=== PATIENT | female | born 1945 | race Two or more races ===

== ENCOUNTER → 2017-01-14 | Outpatient (REF) | payer MEDICARE ==
[~2017-01-14] MED LIST: ACET-654 PO; ASPI81TA90 PO; CALCI50TA PO; CAPT31TA PO; CAPT62TA PO; CARV3.12 PO; CARV6.25 PO; DOCU100C PO; FERR32TA PO; GLIP5TAB2 PO; MILKSUS5 PO; MIRA255PW PO; MV-OCAP PO; NITR0.4D SL; PERCOCET PO; SENN8.6T76 PO; SIMV40TA2 PO; WARF6TAB14 PO; WARF7.5T17 PO; ZOCO20TA PO
[2017-01-14 19:06] LABS: CALCIUM OXALATE CRYSTALS LARGE
== END ==
LOC: M SMT 16:45
PROVIDERS: ATTEND Urology
DX: R31.0 Gross hematuria (principal)
CPT/HCPCS: 81001; 87086; 88108; G0463

== ENCOUNTER → 2017-02-01 | Outpatient (CLI) | payer MEDICARE ==
[~2017-02-01] MED LIST changes: +ISOVUE-370 76% 100ML VIAL (Q9967) As Ordered ONE
--- NOTE | 2017-02-02 11:18 | REP ---
CT ABDOMEN: HISTORY: Gross hematuria. COMPARISON: None. FINDINGS: The lung bases are essentially clear and unchanged from a prior CT of the chest 08/17/2011. Limited noncontrast enhanced evaluation of the liver, spleen, pancreas and adrenal glands show no gross abnormalities. Arising from the superior pole of the left kidney and projecting anteriorly, there is a round 1.6 cm size low density mass having slightly higher than water Hounsfield unit readings. Also seen in the left kidney interpolar region projecting medially, there is a 1.9 cm sized low density lesion having water Hounsfield unit readings in a single mural calcification. There is a single right nephrolith. There is no hydronephrosis or hydroureter. 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 I see no definite ureteroliths. A small ureterolith could be obscured by the aforementioned artifact. This is even after [employer] metallic artifact reducing software in play. Limited evaluation of the abdominal aorta and paraaortic regions show no gross abnormalities. Age-related calcified atherosclerotic changes noted. Limited evaluation of the bowel loops and their mesentery show no gross abnormalities. There is no free fluid or free air in the abdomen or pelvis. There is a large amount of adipose tissue seen in each inguinal ring. This needs to be correlated clinically to rule out the possibility of a fat containing inguinal hernia, which cannot be diagnosed by this examination. Bone window technique throughout the examination shows the bones to be demineralized and chronic osseous changes are noted with a right hip prosthesis. IMPRESSION: 1. Hyperdense left renal cyst suggesting Bosniak class 2. Correlate clinically. Obtain renal ultrasound for confirmation. 2. Additional Bosniak class 2 left renal cyst interpolar region as described above with a single mural calcification. Also consider ultrasound. 3. Small incidental right nephrolith. 4. Other findings and limitations as described above, which need clinical correlation. Signed by Charbel Gonsalez DO 02/02/2017 11:36 A
== END ==
LOC: M RAD 16:41
PROVIDERS: ATTEND Urology
DX: R31.9 Hematuria, unspecified (principal)

== ENCOUNTER → 2022-07-24 | Outpatient (CLI) | payer MEDICARE ==
[~2022-07-24] MED LIST changes: +CAPT1TAB19 PO; -CAPT31TA PO; -CAPT62TA PO; -ISOVUE-370 76% 100ML VIAL (Q9967) As Ordered ONE; -MIRA255PW PO; +OXYC1TAB23 PO; -PERCOCET PO; +POLY1POW4 PO
[2022-07-24 15:22] LABS: BASO % 0.4 % (0.0-1.0); EOS # 0.1 10^3/uL (0.0-0.5); EOS % 1.8 % (0.0-3.0); HEMOGLOBIN 14.9 g/dl (12.0-15.5); LYMPH # 2.3 10^3/uL (1.5-5.0); LYMPH % 30.8 % (24.0-44.0); MEAN CORPUSCULAR HEMOGLOBIN 30.5 pg (27.0-33.0); MEAN CORPUSCULAR HGB CONC 32.4 g/dl (32.0-36.5); MEAN CORPUSCULAR VOLUME 94.3 fl (80.0-96.0); MONO # 0.9 10^3/uL (0.0-0.8); MONO % 11.7 % (2.0-8.0); NEUTROPHILS % 54.9 % (36.0-66.0); PLATELET COUNT, AUTOMATED 248 10^3/uL (150-450); RED BLOOD COUNT 4.88 10^6/uL (4.00-5.40); WHITE BLOOD COUNT 7.4 10^3/uL (4.0-10.0)
[2022-07-24 15:58] LABS: CALCIUM LEVEL 9.4 MG/DL (8.8-10.2); CREATININE FOR GFR 1.37 MG/DL (0.55-1.30); GLOMERULAR FILTRATION RATE 39.8 (>39); POTASSIUM SERUM 4.3 MEQ/L (3.5-5.1)
== END ==
LOC: M RAD 14:11
PROVIDERS: ATTEND Physician Assistant
DX: I25.5 Ischemic cardiomyopathy (principal); S22.000A Wedge compression fracture of unspecified thoracic vertebra, initial encounter for closed fracture; Z96.611 Presence of right artificial shoulder joint; Z95.0 Presence of cardiac pacemaker; Y92.9 Unspecified place or not applicable; Y93.9 Activity, unspecified

== ENCOUNTER 2023-03-16 11:42 | Inpatient (IN) | payer MEDICARE ==
[2023-03-16] VITALS (19 sets, daily range): BP systolic 84–120; BP diastolic 55–83; TEMP 98.2; O2SAT 93–95
[~2023-03-16] VITALS: Ht 162.6 cm; Wt 71.8 kg
[2023-03-16] MEDS ORDERED: NS 1,000 ML IV ONE (12:20)
[2023-03-16] MEDS ORDERED: LIDOCAINE 2% 5ML JELLY UROJET TOP ONE (12:20)
[2023-03-16 12:29] LABS: HEMATOCRIT 46.6 % (36.0-47.0); HEMOGLOBIN 15.7 g/dl (12.0-15.5); MEAN CORPUSCULAR HEMOGLOBIN 31.3 pg (27.0-33.0); MEAN CORPUSCULAR HGB CONC 33.7 g/dl (32.0-36.5); MEAN CORPUSCULAR VOLUME 92.8 fl (80.0-96.0); PLATELET COUNT, AUTOMATED 142 10^3/uL (150-450); RED BLOOD COUNT 5.02 10^6/uL (4.00-5.40); WHITE BLOOD COUNT 28.9 10^3/uL (4.0-10.0)
[2023-03-16 12:50] LABS: ATYPICAL LYMPH 1 % (0-5); LYMPHOCYTES 2 % (16-44); METAMYELOCYTES 2 % (0-0); MONOCYTES 4 % (0-5); NEUTROPHILS 71 % (28-66)
[2023-03-16 12:51] LABS: PLATELET ESTIMATE DECREASED (NORMAL); TOXIC VACUOLATION 1+
[2023-03-16 12:56] LABS: ETHYL ALCOHOL (ETHANOL) < 0.003 % (0.000-0.010)
[2023-03-16 12:57] LABS: ACETAMINOPHEN LEVEL < 2.0 UG/ML (10.0-20.0); CPK CREATINE PHOSPHOKINASE 142 U/L (34-145); SALICYLATE LEVEL < 3.0 MG/DL (<30)
[2023-03-16 12:58] LABS: ALBUMIN 3.2 G/DL (3.2-5.2); ALKALINE PHOSPHATASE 80 U/L (46-116); ALT/SGPT 24 U/L (7.0-40); AST/SGOT 53 U/L (<34); BILIRUBIN,DIRECT 0.7 MG/DL (<0.4); BILIRUBIN,TOTAL 1.3 MG/DL (0.3-1.2); BLOOD UREA NITROGEN 50 MG/DL (9-23); CALCIUM LEVEL 9.5 MG/DL (8.3-10.6); CARBON DIOXIDE LEVEL 15 MMOL/L (20-31); CHLORIDE LEVEL 105 MMOL/L (98-107); CK-MB VALUE MASS 1.6 NG/ML (<3.6); CREATININE FOR GFR 4.09 MG/DL (0.55-1.30); GLOMERULAR FILTRATION RATE 11.2 (>39); GLUCOSE, FASTING 161 MG/DL (74-106); MB/CK RELATIVE INDEX 1.12 (< OR =4); POTASSIUM SERUM 4.9 MMOL/L (3.5-5.1); SODIUM LEVEL 137 MMOL/L (136-145)
[2023-03-16 12:59] LABS: THYROID STIMULATING HORMONE 2.907 uIU/ML (0.55-4.78)
[2023-03-16 13:00] LABS: RSV AMPLIFICATION NEGATIVE (NEGATIVE)
[2023-03-16 13:05] LABS: AMPHETAMINES LEVEL URINE NEGATIVE (NEGATIVE); BARBITURATES URINE NEGATIVE (NEGATIVE); BENZODIAZEPINES URINE NEGATIVE (NEGATIVE); CANNABINOIDS URINE NEGATIVE (NEGATIVE); COCAINE METABOLITE URINE NEGATIVE (NEGATIVE); METHADONE URINE NEGATIVE (NEGATIVE); OPIATES URINE NEGATIVE (NEGATIVE); PHENCYCLIDINE URINE NEGATIVE (NEGATIVE)
[2023-03-16] MEDS ORDERED: LevoFLOXacin IV 750 MG in IV 1 EA IV ONE (13:10)
[2023-03-16] MEDS ORDERED: NS 1,100 ML in IV 1 EA IV ONE (13:15)
[2023-03-16 13:16] LABS: OSMOLALITY SERUM 304 MOSM/KG (280-301)
[2023-03-16 13:56] LABS: CK-MB VALUE MASS 1.4 NG/ML (<3.6)
[2023-03-16 14:00] LABS: MB/CK RELATIVE INDEX 0.55 (< OR =4)
[2023-03-16] MEDS ORDERED: MULT400T10 PO (15:13)
[2023-03-16] MEDS ORDERED: CARV6.25 PO (15:13)
[2023-03-16] MEDS ORDERED: RA A81CH3 PO (15:13)
[2023-03-16] MEDS ORDERED: CAPT125TA PO (15:13)
[2023-03-16] MEDS ORDERED: FENO160T10 PO (15:13)
[2023-03-16] MEDS ORDERED: ACET1TAB55 PO (15:13)
[2023-03-16] MEDS ORDERED: OXYB5TAB10 PO (15:13)
[2023-03-16] MEDS ORDERED: ATOR1TAB21 PO (15:13)
[2023-03-16] MEDS ORDERED: HOME MED LIST COMPLETE! XX SCH (15:15)
[2023-03-16] MEDS ORDERED: ACETAMINOPHEN 1000MG 100ML IV BAG As Ordered ONE (15:19)
[2023-03-16] MEDS ORDERED: PHENYLephrine 500MCG 5ML (100MCG/ML) SYRINGE As Ordered ONE ×2 (15:19→15:49)
[2023-03-16] MEDS ORDERED: ONDANSETRON 4MG 2ML VIAL As Ordered ONE (15:19)
[2023-03-16] MEDS ORDERED: propofoL 200 MG/20 ML VIAL As Ordered ONE (15:19)
[2023-03-16] MEDS ORDERED: fentaNYL 100 MCG/2 ML INJECTION As Ordered ONE (15:19)
[2023-03-16] MEDS ORDERED: LIDOCAINE 2% 100MG/5ML SDV (FOR ANES.) As Ordered ONE (15:19)
[2023-03-16] MEDS ORDERED: ISOVUE-300 61% 50ML VIAL XX ONE (15:44)
[2023-03-16] MEDS ORDERED: PHENYLEPHRINE HCL INJ 10 MG in D5W 100 ML IV SCH (15:50)
[2023-03-16] MEDS ORDERED: ALBUTEROL SULFATE 2.5MG/0.5ML INH NEB SOLN NEB PRN (16:20)
[2023-03-16] MEDS ORDERED: NOREPINEPHRINE 4MG IN D5 250ML 4 MG in IV 1 EA IV SCH ×2 (16:20)
[2023-03-16] MEDS ORDERED: NS 1,000 ML IV SCH (16:25)
[2023-03-16] MEDS ORDERED: DEXTROSE 50% 50ML SYRINGE IV PRN (16:25)
[2023-03-16] MEDS ORDERED: GLUCAGON INJ 1MG VIAL SC PRN (16:25)
[2023-03-16] MEDS ORDERED: GLUCOSE 4GM CHEW TABLET PO PRN (16:25)
[2023-03-16] MEDS: INSULIN LISPRO (NovoLOG) PER UNIT SC SCH (17:08)
[2023-03-16 18:23] LABS: ABG BASE EXCESS -6.8 (-2.0-2.0); ABG HCO3 16.1 MMOL/L (22.0-26.0); ABG PARTIAL PRESSURE CO2 26.5 mmHg (35.0-45.0); ABG PARTIAL PRESSURE O2 68.6 mmHg (75.0-100.0); ABG STANDARD HCO3 18.9 MMOL/L. (22.0-26.0); ABG TOTAL CO2 16.9 MMOL/L (23.0-31.0); ABG pH (ARTERIAL) 7.402 UNITS (7.350-7.450)
[2023-03-16] MEDS: AZTREONAM 1 GM in D5W MINI-BAG PLUS 50 ML IV SCH (18:35)
[2023-03-16 20:55] LABS: HEMATOCRIT 46.7 % (36.0-47.0); HEMOGLOBIN 14.9 g/dl (12.0-15.5); MEAN CORPUSCULAR HEMOGLOBIN 30.8 pg (27.0-33.0); MEAN CORPUSCULAR HGB CONC 31.9 g/dl (32.0-36.5); MEAN CORPUSCULAR VOLUME 96.5 fl (80.0-96.0); PLATELET COUNT, AUTOMATED 113 10^3/uL (150-450); RED BLOOD COUNT 4.84 10^6/uL (4.00-5.40); WHITE BLOOD COUNT 20.1 10^3/uL (4.0-10.0)
[2023-03-16 21:16] LABS: BILIRUBIN,TOTAL 0.9 MG/DL (0.3-1.2); CALCIUM LEVEL 8.2 MG/DL (8.3-10.6); CREATININE FOR GFR 3.39 MG/DL (0.55-1.30); MAGNESIUM LEVEL 1.7 MG/DL (1.8-2.4); POTASSIUM SERUM 4.9 MMOL/L (3.5-5.1)
[2023-03-16 21:37] LABS: LYMPHOCYTES 1 % (16-44); METAMYELOCYTES 2 % (0-0); NEUTROPHILS 52 % (28-66); PLATELET ESTIMATE DECREASED (NORMAL)
[2023-03-16 21:38] LABS: TOXIC VACUOLATION 3+
[2023-03-17] VITALS (13 sets, daily range): BP systolic 96–153; BP diastolic 52–97; TEMP 97.9–99.2; O2SAT 93–97
[2023-03-17] MEDS: CIPROFLOXACIN 200 MG in IV 1 EA IV SCH ×2 (00:13→12:29)
[2023-03-17 05:05] LABS: HEMATOCRIT 41.7 % (36.0-47.0); HEMOGLOBIN 13.5 g/dl (12.0-15.5); MEAN CORPUSCULAR HEMOGLOBIN 30.8 pg (27.0-33.0); MEAN CORPUSCULAR HGB CONC 32.4 g/dl (32.0-36.5); PLATELET COUNT, AUTOMATED 105 10^3/uL (150-450); RED BLOOD COUNT 4.39 10^6/uL (4.00-5.40); WHITE BLOOD COUNT 18.1 10^3/uL (4.0-10.0)
[2023-03-17] MEDS: AZTREONAM 1 GM in D5W MINI-BAG PLUS 50 ML IV SCH ×2 (05:16→18:06)
[2023-03-17 05:19] LABS: LYMPHOCYTES 2 % (16-44); MONOCYTES 1 % (0-5); NEUTROPHILS 95 % (28-66)
[2023-03-17 05:20] LABS: CALCIUM LEVEL 8.1 MG/DL (8.3-10.6); CREATININE FOR GFR 3.23 MG/DL (0.55-1.30); GLOMERULAR FILTRATION RATE 14.8 (>39); PLATELET ESTIMATE DECREASED (NORMAL); POTASSIUM SERUM 4.5 MMOL/L (3.5-5.1)
[2023-03-17] MEDS: INSULIN LISPRO (NovoLOG) PER UNIT SC SCH ×4 (05:26→17:30)
[2023-03-17] MEDS ORDERED: NS 1,000 ML IV SCH (09:00)
[2023-03-17] MEDS: PANTOPRAZOLE 40MG VIAL IV SCH (09:11)
[2023-03-17] MEDS: ASPIRIN 81MG CHEW TABLET PO SCH (09:12)
[2023-03-17] MEDS: ATORVASTATIN 20 MG TAB PO SCH (09:12)
[2023-03-17] MEDS: CARVedilol 6.25 MG TAB PO SCH ×2 (09:12→20:24)
[2023-03-17] MEDS: SODIUM BICARBONATE 325 MG TAB PO SCH ×2 (14:58→20:23)
[2023-03-17 15:02] LABS: MAGNESIUM LEVEL 1.6 MG/DL (1.8-2.4)
[2023-03-17] MEDS: MAG SULF 1GM/100ML (MAG RUN) 1 GM in IV 1 EA IV SCH ×2 (20:22→21:36)
[2023-03-17] MEDS ORDERED: INSULIN LISPRO (NovoLOG) PER UNIT SC SCH (21:00)
[2023-03-18] VITALS: BP 142/69; TEMP 97.6; O2SAT 96
[2023-03-18] MEDS: CIPROFLOXACIN 200 MG in IV 1 EA IV SCH ×2 (01:08→12:36)
[2023-03-18 04:00] VITALS: BP 126/60; TEMP 98.2; O2SAT 96
[2023-03-18 04:21] LABS: HEMATOCRIT 38.9 % (36.0-47.0); MEAN CORPUSCULAR HEMOGLOBIN 31.3 pg (27.0-33.0); MEAN CORPUSCULAR HGB CONC 33.4 g/dl (32.0-36.5); MEAN CORPUSCULAR VOLUME 93.7 fl (80.0-96.0); RED BLOOD COUNT 4.15 10^6/uL (4.00-5.40); WHITE BLOOD COUNT 13.8 10^3/uL (4.0-10.0)
[2023-03-18 04:35] LABS: ATYPICAL LYMPH 1 % (0-5); LYMPHOCYTES 4 % (16-44); MONOCYTES 6 % (0-5); NEUTROPHILS 84 % (28-66)
[2023-03-18 04:36] LABS: PLATELET ESTIMATE NORMAL (NORMAL)
[2023-03-18 04:38] LABS: CALCIUM LEVEL 8.2 MG/DL (8.3-10.6); CREATININE FOR GFR 2.34 MG/DL (0.55-1.30); GLOMERULAR FILTRATION RATE 21.4 (>39); POTASSIUM SERUM 4.2 MMOL/L (3.5-5.1)
[2023-03-18] MEDS: AZTREONAM 1 GM in D5W MINI-BAG PLUS 50 ML IV SCH (05:07)
[2023-03-18 07:47] LABS: MAGNESIUM LEVEL 2.4 MG/DL (1.8-2.4)
[2023-03-18 08:00] VITALS: BP 139/67; TEMP 98; O2SAT 96
[2023-03-18] MEDS: PANTOPRAZOLE 40MG VIAL IV SCH (08:25)
[2023-03-18] MEDS: SODIUM BICARBONATE 325 MG TAB PO SCH ×2 (08:25→20:01)
[2023-03-18] MEDS: CARVedilol 6.25 MG TAB PO SCH ×3 (08:25→20:51)
[2023-03-18] MEDS: ASPIRIN 81MG CHEW TABLET PO SCH (08:25)
[2023-03-18] MEDS: ATORVASTATIN 20 MG TAB PO SCH (08:25)
[2023-03-18 12:00] VITALS: BP 123/74; TEMP 97.6; O2SAT 95
[2023-03-18 16:00] VITALS: BP 140/75; TEMP 97.5; O2SAT 96
[2023-03-18 20:00] VITALS: BP 146/77; TEMP 98.4; O2SAT 93
[2023-03-19] MEDS: CIPROFLOXACIN 200 MG in IV 1 EA IV SCH ×2 (00:32→12:57)
[2023-03-19 04:00] VITALS: BP 151/67; TEMP 98.5; O2SAT 95
[2023-03-19 05:35] LABS: BASO # 0.1 10^3/uL (0.0-0.2); BASO % 0.5 % (0.0-1.0); EOS # 0.1 10^3/uL (0.0-0.5); EOS % 0.5 % (0.0-3.0); HEMATOCRIT 39.7 % (36.0-47.0); HEMOGLOBIN 13.3 g/dl (12.0-15.5); LYMPH # 0.9 10^3/uL (1.5-5.0); LYMPH % 7.1 % (24.0-44.0); MEAN CORPUSCULAR HEMOGLOBIN 30.6 pg (27.0-33.0); MEAN CORPUSCULAR HGB CONC 33.5 g/dl (32.0-36.5); MEAN CORPUSCULAR VOLUME 91.3 fl (80.0-96.0); MONO # 1.5 10^3/uL (0.0-0.8); MONO % 11.3 % (2.0-8.0); NEUTROPHILS # 10.1 10^3/uL (1.5-8.5); NEUTROPHILS % 78.7 % (36.0-66.0); RED BLOOD COUNT 4.35 10^6/uL (4.00-5.40); WHITE BLOOD COUNT 12.9 10^3/uL (4.0-10.0)
[2023-03-19 05:56] LABS: CALCIUM LEVEL 8.1 MG/DL (8.3-10.6); CREATININE FOR GFR 1.69 MG/DL (0.55-1.30); GLOMERULAR FILTRATION RATE 31.2 (>39); POTASSIUM SERUM 4.3 MMOL/L (3.5-5.1)
[2023-03-19 06:02] LABS: PLATELET COUNT, AUTOMATED 86 10^3/uL (150-450)
[2023-03-19 07:26] VITALS: BP 156/82; TEMP 98.4; O2SAT 96
[2023-03-19] MEDS: ASPIRIN 81MG CHEW TABLET PO SCH (09:01)
[2023-03-19] MEDS: SODIUM BICARBONATE 325 MG TAB PO SCH ×2 (09:01→20:00)
[2023-03-19] MEDS: CARVedilol 6.25 MG TAB PO SCH ×2 (09:02→20:00)
[2023-03-19] MEDS: PANTOPRAZOLE 40MG VIAL IV SCH (09:02)
[2023-03-19] MEDS: ATORVASTATIN 20 MG TAB PO SCH (09:07)
[2023-03-19 15:30] VITALS: BP 130/63; TEMP 98.8; O2SAT 95
[2023-03-19 19:48] VITALS: BP 142/74; TEMP 98.5; O2SAT 95
[2023-03-20] MEDS: CIPROFLOXACIN 200 MG in IV 1 EA IV SCH (00:10)
[2023-03-20 04:00] VITALS: BP 146/68; TEMP 98.9; O2SAT 94
[2023-03-20 05:34] LABS: BASO # 0.1 10^3/uL (0.0-0.2); BASO % 0.8 % (0.0-1.0); EOS # 0.1 10^3/uL (0.0-0.5); EOS % 0.9 % (0.0-3.0); HEMATOCRIT 42.1 % (36.0-47.0); HEMOGLOBIN 13.6 g/dl (12.0-15.5); LYMPH # 1.1 10^3/uL (1.5-5.0); MEAN CORPUSCULAR HEMOGLOBIN 30.4 pg (27.0-33.0); MEAN CORPUSCULAR HGB CONC 32.3 g/dl (32.0-36.5); MONO % 14.5 % (2.0-8.0); NEUTROPHILS # 9.5 10^3/uL (1.5-8.5); NEUTROPHILS % 71.6 % (36.0-66.0); PLATELET COUNT, AUTOMATED 125 10^3/uL (150-450); RED BLOOD COUNT 4.48 10^6/uL (4.00-5.40); WHITE BLOOD COUNT 13.2 10^3/uL (4.0-10.0)
[2023-03-20 05:53] LABS: CALCIUM LEVEL 7.8 MG/DL (8.3-10.6); CREATININE FOR GFR 1.46 MG/DL (0.55-1.30); GLOMERULAR FILTRATION RATE 36.9 (>39); MONO # 1.9 10^3/uL (0.0-0.8); POTASSIUM SERUM 4.5 MMOL/L (3.5-5.1)
[2023-03-20 07:52] VITALS: BP 154/77; TEMP 97.9; O2SAT 96
[2023-03-20] MEDS ORDERED: CIPROFLOXACIN 500MG TABLET PO SCH (08:00)
[2023-03-20] MEDS: ATORVASTATIN 20 MG TAB PO SCH (08:02)
[2023-03-20] MEDS: PANTOPRAZOLE 40MG TAB (PROTONIX) PO SCH (08:02)
[2023-03-20] MEDS: ASPIRIN 81MG CHEW TABLET PO SCH (08:02)
[2023-03-20] MEDS: CARVedilol 6.25 MG TAB PO SCH ×2 (08:04→21:33)
[2023-03-20] MEDS ORDERED: PNEUMOCOCCAL VACCINE 0.5ML SYRINGE (PNEUMOVAX 23) IM.IMMUN ONE (12:00)
[2023-03-20 15:43] VITALS: BP 143/67; TEMP 97.7; O2SAT 98
[2023-03-20] MEDS: CIPROFLOXACIN 250MG TAB PO SCH (17:31)
[2023-03-20 20:00] VITALS: BP 159/77; TEMP 99; O2SAT 96
[2023-03-20 21:24] VITALS: BP 150/86; TEMP 98.3; O2SAT 97
[2023-03-20 22:00] VITALS: BP 150/86; TEMP 98.3; O2SAT 97
[2023-03-21 04:48] LABS: BASO # 0.1 10^3/uL (0.0-0.2); BASO % 0.7 % (0.0-1.0); EOS # 0.2 10^3/uL (0.0-0.5); EOS % 1.5 % (0.0-3.0); HEMATOCRIT 42.9 % (36.0-47.0); HEMOGLOBIN 14.1 g/dl (12.0-15.5); LYMPH # 1.4 10^3/uL (1.5-5.0); LYMPH % 9.4 % (24.0-44.0); MEAN CORPUSCULAR HGB CONC 32.9 g/dl (32.0-36.5); MEAN CORPUSCULAR VOLUME 91.3 fl (80.0-96.0); MONO % 12.1 % (2.0-8.0); NEUTROPHILS # 10.6 10^3/uL (1.5-8.5); NEUTROPHILS % 71.6 % (36.0-66.0); PLATELET COUNT, AUTOMATED 121 10^3/uL (150-450); WHITE BLOOD COUNT 14.7 10^3/uL (4.0-10.0)
[2023-03-21 04:54] LABS: CALCIUM LEVEL 7.8 MG/DL (8.3-10.6); CREATININE FOR GFR 1.31 MG/DL (0.55-1.30); GLOMERULAR FILTRATION RATE 41.8 (>39)
[2023-03-21 05:12] LABS: MONO # 1.8 10^3/uL (0.0-0.8)
[2023-03-21] MEDS: CIPROFLOXACIN 250MG TAB PO SCH (05:57)
[2023-03-21 06:00] VITALS: BP 156/89; TEMP 98.6; O2SAT 97
[2023-03-21 08:00] VITALS: BP 139/71; TEMP 98.5; O2SAT 95
[2023-03-21] MEDS ORDERED: FUROSEMIDE 40MG/4ML VIAL IV ONE (08:00)
[2023-03-21] MEDS: CARVedilol 6.25 MG TAB PO SCH ×2 (08:27→21:04)
[2023-03-21] MEDS: PANTOPRAZOLE 40MG TAB (PROTONIX) PO SCH (08:27)
[2023-03-21] MEDS: ATORVASTATIN 20 MG TAB PO SCH (08:28)
[2023-03-21] MEDS: ASPIRIN 81MG CHEW TABLET PO SCH (08:28)
[2023-03-21 16:21] VITALS: BP 99/55; TEMP 97.8; O2SAT 91
[2023-03-21] MEDS: CIPROFLOXACIN 500MG TABLET PO SCH (18:06)
[2023-03-21 20:50] VITALS: BP 132/67; TEMP 99.6; O2SAT 95
[2023-03-22 05:24] LABS: BASO # 0.1 10^3/uL (0.0-0.2); BASO % 0.7 % (0.0-1.0); EOS # 0.3 10^3/uL (0.0-0.5); EOS % 1.7 % (0.0-3.0); HEMATOCRIT 43.6 % (36.0-47.0); HEMOGLOBIN 14.6 g/dl (12.0-15.5); LYMPH # 1.8 10^3/uL (1.5-5.0); LYMPH % 11.4 % (24.0-44.0); MEAN CORPUSCULAR HEMOGLOBIN 30.7 pg (27.0-33.0); MEAN CORPUSCULAR HGB CONC 33.5 g/dl (32.0-36.5); MEAN CORPUSCULAR VOLUME 91.8 fl (80.0-96.0); MONO % 10.6 % (2.0-8.0); NEUTROPHILS % 71.2 % (36.0-66.0); PLATELET COUNT, AUTOMATED 144 10^3/uL (150-450); RED BLOOD COUNT 4.75 10^6/uL (4.00-5.40); WHITE BLOOD COUNT 15.4 10^3/uL (4.0-10.0)
[2023-03-22 05:30] LABS: CALCIUM LEVEL 7.8 MG/DL (8.3-10.6); CREATININE FOR GFR 1.36 MG/DL (0.55-1.30); POTASSIUM SERUM 4.1 MMOL/L (3.5-5.1)
[2023-03-22 05:57] LABS: MONO # 1.6 10^3/uL (0.0-0.8)
[2023-03-22] MEDS: CIPROFLOXACIN 500MG TABLET PO SCH ×2 (06:21→17:55)
[2023-03-22 07:45] VITALS: BP 157/84; TEMP 98.6; O2SAT 97
[2023-03-22] MEDS: CARVedilol 6.25 MG TAB PO SCH ×2 (09:49→20:04)
[2023-03-22] MEDS: ASPIRIN 81MG CHEW TABLET PO SCH (09:49)
[2023-03-22] MEDS: PANTOPRAZOLE 40MG TAB (PROTONIX) PO SCH (09:49)
[2023-03-22] MEDS: ATORVASTATIN 20 MG TAB PO SCH (09:49)
[2023-03-22] MEDS: FUROSEMIDE 40 MG TAB PO SCH (09:50)
[2023-03-22 10:58] LABS: ERYTHROCYTE SEDIMENTATION RATE 52 mm/hr (0-30)
[2023-03-22] MEDS ORDERED: CIPR-249 PO (11:02)
[2023-03-22] MEDS ORDERED: FURO40TA2 PO (11:02)
[2023-03-22] MEDS ORDERED: BACI1CAP PO (11:02)
[2023-03-22 11:06] LABS: PROCALCITONIN 1.99 ng/ml
[2023-03-22 11:14] LABS: C REACTIVE PROTEIN QUANTITATIV 10.5 MG/DL (<1.0)
[2023-03-22 11:42] LABS: BASO # 0.1 10^3/uL (0.0-0.2); BASO % 0.4 % (0.0-1.0); EOS # 0.2 10^3/uL (0.0-0.5); EOS % 1.7 % (0.0-3.0); HEMOGLOBIN 13.8 g/dl (12.0-15.5); LYMPH # 1.5 10^3/uL (1.5-5.0); LYMPH % 10.5 % (24.0-44.0); MEAN CORPUSCULAR HEMOGLOBIN 30.2 pg (27.0-33.0); MEAN CORPUSCULAR HGB CONC 33.7 g/dl (32.0-36.5); MEAN CORPUSCULAR VOLUME 89.7 fl (80.0-96.0); MONO # 1.2 10^3/uL (0.0-0.8); MONO % 8.6 % (2.0-8.0); NEUTROPHILS # 10.9 10^3/uL (1.5-8.5); NEUTROPHILS % 75.6 % (36.0-66.0); PLATELET COUNT, AUTOMATED 164 10^3/uL (150-450); RED BLOOD COUNT 4.57 10^6/uL (4.00-5.40); WHITE BLOOD COUNT 14.4 10^3/uL (4.0-10.0)
[2023-03-22 20:00] VITALS: BP 146/77; TEMP 97.4; O2SAT 97
[2023-03-22 20:50] VITALS: BP 147/84; TEMP 98.6; O2SAT 98
[2023-03-23] MEDS: CIPROFLOXACIN 500MG TABLET PO SCH (05:05)
[2023-03-23 05:32] VITALS: BP 136/82; TEMP 98.1; O2SAT 95
[2023-03-23 06:43] LABS: BASO # 0.2 10^3/uL (0.0-0.2); BASO % 0.9 % (0.0-1.0); EOS # 0.3 10^3/uL (0.0-0.5); EOS % 1.7 % (0.0-3.0); HEMATOCRIT 40.7 % (36.0-47.0); HEMOGLOBIN 13.8 g/dl (12.0-15.5); LYMPH # 1.6 10^3/uL (1.5-5.0); LYMPH % 10.1 % (24.0-44.0); MEAN CORPUSCULAR HEMOGLOBIN 30.4 pg (27.0-33.0); MEAN CORPUSCULAR HGB CONC 33.9 g/dl (32.0-36.5); MEAN CORPUSCULAR VOLUME 89.6 fl (80.0-96.0); MONO # 1.2 10^3/uL (0.0-0.8); MONO % 7.7 % (2.0-8.0); NEUTROPHILS # 12.3 10^3/uL (1.5-8.5); NEUTROPHILS % 76.8 % (36.0-66.0); PLATELET COUNT, AUTOMATED 202 10^3/uL (150-450); RED BLOOD COUNT 4.54 10^6/uL (4.00-5.40); WHITE BLOOD COUNT 16.1 10^3/uL (4.0-10.0)
[2023-03-23 07:11] LABS: CALCIUM LEVEL 8.4 MG/DL (8.3-10.6); CREATININE FOR GFR 1.22 MG/DL (0.55-1.30); GLOMERULAR FILTRATION RATE 45.4 (>39)
[2023-03-23] MEDS: FUROSEMIDE 40 MG TAB PO SCH (08:32)
[2023-03-23] MEDS: ATORVASTATIN 20 MG TAB PO SCH (08:32)
[2023-03-23] MEDS: PANTOPRAZOLE 40MG TAB (PROTONIX) PO SCH (08:32)
[2023-03-23] MEDS: ASPIRIN 81MG CHEW TABLET PO SCH (08:32)
[2023-03-23] MEDS: CARVedilol 6.25 MG TAB PO SCH ×2 (08:33→21:35)
[2023-03-23] MEDS: cefTRIAXone SOD 2 GM in D5W MINI-BAG PLUS 50 ML IV SCH (12:58)
[2023-03-23 14:00] VITALS: BP 131/82; TEMP 97.7; O2SAT 95
[2023-03-23] MEDS: LACTOBACILLUS ACIDOPHILUS CAP (BACID) PO SCH ×2 (18:09→21:34)
[2023-03-23 22:00] VITALS: BP 132/82; TEMP 98.6; O2SAT 93
[2023-03-24 05:55] LABS: BASO # 0.1 10^3/uL (0.0-0.2); BASO % 0.7 % (0.0-1.0); EOS # 0.2 10^3/uL (0.0-0.5); EOS % 1.4 % (0.0-3.0); HEMATOCRIT 39.5 % (36.0-47.0); HEMOGLOBIN 13.6 g/dl (12.0-15.5); LYMPH # 1.6 10^3/uL (1.5-5.0); MEAN CORPUSCULAR HEMOGLOBIN 30.6 pg (27.0-33.0); MEAN CORPUSCULAR HGB CONC 34.4 g/dl (32.0-36.5); MEAN CORPUSCULAR VOLUME 88.8 fl (80.0-96.0); MONO # 1.1 10^3/uL (0.0-0.8); MONO % 7.7 % (2.0-8.0); NEUTROPHILS # 10.8 10^3/uL (1.5-8.5); NEUTROPHILS % 76.4 % (36.0-66.0); PLATELET COUNT, AUTOMATED 243 10^3/uL (150-450); RED BLOOD COUNT 4.45 10^6/uL (4.00-5.40); WHITE BLOOD COUNT 14.2 10^3/uL (4.0-10.0)
[2023-03-24 06:00] VITALS: BP 131/78; TEMP 97.5; O2SAT 96
[2023-03-24 06:09] LABS: C REACTIVE PROTEIN QUANTITATIV 7.8 MG/DL (<1.0)
[2023-03-24 06:11] LABS: CALCIUM LEVEL 8.3 MG/DL (8.3-10.6); CREATININE FOR GFR 1.37 MG/DL (0.55-1.30); GLOMERULAR FILTRATION RATE 39.7 (>39)
[2023-03-24 06:53] LABS: ERYTHROCYTE SEDIMENTATION RATE 53 mm/hr (0-30)
[2023-03-24] MEDS: FUROSEMIDE 40 MG TAB PO SCH (08:14)
[2023-03-24] MEDS: CARVedilol 6.25 MG TAB PO SCH ×2 (08:14→21:14)
[2023-03-24] MEDS: LACTOBACILLUS ACIDOPHILUS CAP (BACID) PO SCH ×4 (08:14→21:13)
[2023-03-24] MEDS: ATORVASTATIN 20 MG TAB PO SCH (08:14)
[2023-03-24] MEDS: ASPIRIN 81MG CHEW TABLET PO SCH (08:14)
[2023-03-24] MEDS: PANTOPRAZOLE 40MG TAB (PROTONIX) PO SCH (08:14)
[2023-03-24] MEDS: cefTRIAXone SOD 2 GM in D5W MINI-BAG PLUS 50 ML IV SCH (13:59)
[2023-03-24 14:00] VITALS: TEMP 97.5; O2SAT 96
[2023-03-24 19:35] VITALS: BP 170/90; TEMP 98.8; O2SAT 98
[2023-03-25 06:00] VITALS: BP 160/86; TEMP 98.6; O2SAT 96
[2023-03-25 06:04] LABS: BASO # 0.1 10^3/uL (0.0-0.2); BASO % 0.6 % (0.0-1.0); EOS # 0.2 10^3/uL (0.0-0.5); EOS % 1.8 % (0.0-3.0); HEMATOCRIT 39.4 % (36.0-47.0); HEMOGLOBIN 13.5 g/dl (12.0-15.5); LYMPH # 1.9 10^3/uL (1.5-5.0); LYMPH % 14.2 % (24.0-44.0); MEAN CORPUSCULAR HEMOGLOBIN 30.5 pg (27.0-33.0); MEAN CORPUSCULAR HGB CONC 34.3 g/dl (32.0-36.5); MEAN CORPUSCULAR VOLUME 89.1 fl (80.0-96.0); MONO # 1.1 10^3/uL (0.0-0.8); NEUTROPHILS # 9.7 10^3/uL (1.5-8.5); NEUTROPHILS % 73.6 % (36.0-66.0); PLATELET COUNT, AUTOMATED 250 10^3/uL (150-450); RED BLOOD COUNT 4.42 10^6/uL (4.00-5.40); WHITE BLOOD COUNT 13.1 10^3/uL (4.0-10.0)
[2023-03-25 06:14] LABS: ERYTHROCYTE SEDIMENTATION RATE 56 mm/hr (0-30)
[2023-03-25 06:22] LABS: C REACTIVE PROTEIN QUANTITATIV 6.9 MG/DL (<1.0)
[2023-03-25 06:24] LABS: CALCIUM LEVEL 7.8 MG/DL (8.3-10.6); CREATININE FOR GFR 1.28 MG/DL (0.55-1.30); GLOMERULAR FILTRATION RATE 42.9 (>39); POTASSIUM SERUM 4.1 MMOL/L (3.5-5.1)
[2023-03-25] MEDS: ASPIRIN 81MG CHEW TABLET PO SCH (08:18)
[2023-03-25] MEDS: LACTOBACILLUS ACIDOPHILUS CAP (BACID) PO SCH ×2 (08:18→12:14)
[2023-03-25] MEDS: FUROSEMIDE 40 MG TAB PO SCH (08:18)
[2023-03-25] MEDS: ATORVASTATIN 20 MG TAB PO SCH (08:18)
[2023-03-25] MEDS: PANTOPRAZOLE 40MG TAB (PROTONIX) PO SCH (08:18)
[2023-03-25] MEDS: CARVedilol 6.25 MG TAB PO SCH (08:19)
[2023-03-25] MEDS ORDERED: LEVO1TAB39 PO (09:13)
[2023-03-25] MEDS: cefTRIAXone SOD 2 GM in D5W MINI-BAG PLUS 50 ML IV SCH (12:14)
[2023-03-25 13:00] VITALS: BP 114/62
[2023-03-25] MEDS ORDERED: cloNIDine 0.1MG TABLET PO ONE (13:00)
[2023-03-25] MEDS ORDERED: FUROSEMIDE 40 MG TAB PO ONE (13:10)
[2023-03-25] MEDS ORDERED: LASI40TA9 PO (13:12)
[2023-03-25 14:21] VITALS: BP 114/62
[2023-03-26] MEDS ORDERED: FUROSEMIDE 40 MG TAB PO SCH (09:00)
== END 2023-03-25 14:37 | DRG 853 ==
LOC: M ED 11:42 → EDBD 11:42 → M ED INP 14:53 → M ED 15:02 → M ICU 16:30 → M MSPAV 03-22 20:50
PROVIDERS: ADMIT Internal Medicine Nephrology; ATTEND General Practice
PROC: 0T768DZ Dilation of Right Ureter with Intraluminal Device, Via Natural or Artificial Opening Endoscopic (ICD-10-PCS; principal; 2023-03-16 14:14)
DX: A41.51 Sepsis due to Escherichia coli [E. coli] (principal); R65.21 Severe sepsis with septic shock; G93.41 Metabolic encephalopathy; N17.0 Acute kidney failure with tubular necrosis; I13.0 Hypertensive heart and chronic kidney disease with heart failure and stage 1 through stage 4 chronic kidney disease, or unspecified chronic kidney disease; N13.6 Pyonephrosis; N39.0 Urinary tract infection, site not specified; I50.42 Chronic combined systolic (congestive) and diastolic (congestive) heart failure; E87.20 Acidosis, unspecified; J98.11 Atelectasis; N18.30 Chronic kidney disease, stage 3 unspecified; E11.22 Type 2 diabetes mellitus with diabetic chronic kidney disease; F03.90 Unspecified dementia, unspecified severity, without behavioral disturbance, psychotic disturbance, mood disturbance, and anxiety; I25.2 Old myocardial infarction; E78.00 Pure hypercholesterolemia, unspecified; I25.10 Atherosclerotic heart disease of native coronary artery without angina pectoris; Z95.810 Presence of automatic (implantable) cardiac defibrillator; K57.30 Diverticulosis of large intestine without perforation or abscess without bleeding; Z95.2 Presence of prosthetic heart valve; Z79.82 Long term (current) use of aspirin; Z79.899 Other long term (current) drug therapy; Z88.0 Allergy status to penicillin

== ENCOUNTER 2023-03-30 07:54 | Inpatient (IN) | payer MEDICARE ==
[~2023-03-30] VITALS: Ht 162.6 cm; Wt 68.1 kg
[~2023-03-30 07:54] MED LIST changes: +ACET1TAB55 PO; +ATOR1TAB21 PO; +BACI1CAP PO; +CAPT125TA PO; +CIPR-249 PO; +FENO160T10 PO; +FURO40TA2 PO; +LASI40TA9 PO; +LEVO1TAB39 PO; +MULT400T10 PO; +OXYB5TAB10 PO; +RA A81CH3 PO
[2023-03-30] MEDS ORDERED: MORPHINE 2 MG/ML 1ML VIAL IV PRN ×2 (08:40→12:15)
[2023-03-30] MEDS ORDERED: CAPTOpril 6.25 MG PER 1/2 TABLET PO SCH (09:00)
[2023-03-30] MEDS ORDERED: LevoFLOXacin IV 500 MG in IV 1 EA IV ONE (09:25)
[2023-03-30] MEDS ORDERED: NS 1,000 ML IV SCH (09:25)
[2023-03-30 09:28] LABS: BASO % 0.4 % (0.0-1.0); EOS % 0.4 % (0.0-3.0); HEMOGLOBIN 13.5 g/dl (12.0-15.5); LYMPH # 1.6 10^3/uL (1.5-5.0); MEAN CORPUSCULAR HEMOGLOBIN 29.9 pg (27.0-33.0); MEAN CORPUSCULAR HGB CONC 32.9 g/dl (32.0-36.5); MEAN CORPUSCULAR VOLUME 90.7 fl (80.0-96.0); MONO # 1.1 10^3/uL (0.0-0.8); MONO % 9.4 % (2.0-8.0); NEUTROPHILS # 8.6 10^3/uL (1.5-8.5); NEUTROPHILS % 75.1 % (36.0-66.0); PLATELET COUNT, AUTOMATED 396 10^3/uL (150-450); RED BLOOD COUNT 4.52 10^6/uL (4.00-5.40); WHITE BLOOD COUNT 11.4 10^3/uL (4.0-10.0)
[2023-03-30 09:46] LABS: INR 1.09; PROTHROMBIN TIME 14.3 SECONDS (12.5-14.5)
[2023-03-30 09:47] LABS: PARTIAL THROMBOPLASTIN TIME 28.1 SECONDS (24.8-34.2)
[2023-03-30 09:50] LABS: ALBUMIN 2.5 G/DL (3.2-5.2); BILIRUBIN,DIRECT 0.5 MG/DL (<0.4); BILIRUBIN,TOTAL 1.4 MG/DL (0.3-1.2); CALCIUM LEVEL 9.3 MG/DL (8.3-10.6); CREATININE FOR GFR 1.28 MG/DL (0.55-1.30); GLOMERULAR FILTRATION RATE 42.9 (>39); POTASSIUM SERUM 4.9 MMOL/L (3.5-5.1); TOTAL PROTEIN 6.6 G/DL (5.7-8.2)
[2023-03-30 09:52] LABS: THYROID STIMULATING HORMONE 5.12 uIU/ML (0.55-4.78)
[2023-03-30 10:25] LABS: CK-MB VALUE MASS 1.1 NG/ML (<3.6); MB/CK RELATIVE INDEX 2.39 (< OR =4)
[2023-03-30 10:36] LABS: RSV AMPLIFICATION NEGATIVE (NEGATIVE)
[2023-03-30] MEDS ORDERED: MED REC IN PROGRESS XX SCH ×2 (11:45→12:00)
[2023-03-30 12:47] LABS: MAGNESIUM LEVEL 1.7 MG/DL (1.8-2.4)
[2023-03-30] MEDS ORDERED: ATOR1TAB21 PO (13:11)
[2023-03-30] MEDS ORDERED: CAPT125TA PO (13:11)
[2023-03-30 13:16] VITALS: BP 147/87; TEMP 98.2; O2SAT 96
[2023-03-30] MEDS ORDERED: HOME MED LIST COMPLETE! XX SCH (13:20)
[2023-03-30] MEDS: NS 1,000 ML IV SCH (14:04)
[2023-03-30] MEDS: PANTOPRAZOLE 40MG VIAL IV SCH (14:04)
[2023-03-30] MEDS: CARVedilol 6.25 MG TAB PO SCH ×2 (15:35→20:05)
[2023-03-30] MEDS: oxyBUTYnin 5 MG TAB PO SCH ×2 (15:36→20:05)
[2023-03-30] MEDS ORDERED: MAG SULF 1GM/100ML (MAG RUN) 1 GM in IV 1 EA IV ONE (16:00)
[2023-03-30] MEDS: CAPTOpril 12.5 MG TAB PO SCH ×2 (16:36→20:06)
[2023-03-30] MEDS ORDERED: PILL CUTTER 1 EACH XX PRN (17:05)
[2023-03-30] MEDS: ATORVASTATIN 20 MG TAB PO SCH (20:05)
[2023-03-30 21:10] VITALS: BP 129/73; TEMP 97.9; O2SAT 95
[2023-03-30 22:00] VITALS: BP 134/74; TEMP 98.2; O2SAT 95
[2023-03-31] VITALS (12 sets, daily range): BP systolic 94–146; BP diastolic 58–80; TEMP 97.2–98.2; O2SAT 92–99
[2023-03-31] MEDS: ACETAMINOPHEN TAB 650MG DOSE (2X325MG) PO PRN ×2 (00:09→20:07)
[2023-03-31] MEDS: NS 1,000 ML IV SCH (02:43)
[2023-03-31 06:01] LABS: HEMATOCRIT 36.5 % (36.0-47.0); HEMOGLOBIN 12.1 g/dl (12.0-15.5); MEAN CORPUSCULAR HEMOGLOBIN 30.4 pg (27.0-33.0); MEAN CORPUSCULAR HGB CONC 33.2 g/dl (32.0-36.5); MEAN CORPUSCULAR VOLUME 91.7 fl (80.0-96.0); PLATELET COUNT, AUTOMATED 337 10^3/uL (150-450); RED BLOOD COUNT 3.98 10^6/uL (4.00-5.40); WHITE BLOOD COUNT 8.1 10^3/uL (4.0-10.0)
[2023-03-31 06:11] LABS: ALKALINE PHOSPHATASE 77 U/L (46-116); ALT/SGPT < 9 U/L (7.0-40); AST/SGOT < 8 U/L (<34); BILIRUBIN,TOTAL 1.1 MG/DL (0.3-1.2); BLOOD UREA NITROGEN 19 MG/DL (9-23); CALCIUM LEVEL 8.1 MG/DL (8.3-10.6); CARBON DIOXIDE LEVEL 21 MMOL/L (20-31); CHLORIDE LEVEL 108 MMOL/L (98-107); CREATININE FOR GFR 1.14 MG/DL (0.55-1.30); GLOMERULAR FILTRATION RATE 49.1 (>39); GLUCOSE, FASTING 146 MG/DL (74-106); POTASSIUM SERUM 4.3 MMOL/L (3.5-5.1); SODIUM LEVEL 136 MMOL/L (136-145); TOTAL PROTEIN 5.4 G/DL (5.7-8.2)
[2023-03-31] MEDS ORDERED: D5W/0.45% SODIUM CHLORIDE 1,000 ML IV SCH (08:15)
[2023-03-31] MEDS: PANTOPRAZOLE 40MG VIAL IV SCH (08:35)
[2023-03-31] MEDS: CAPTOpril 12.5 MG TAB PO SCH ×2 (09:00→20:01)
[2023-03-31] MEDS: CARVedilol 6.25 MG TAB PO SCH ×2 (09:00→20:00)
[2023-03-31] MEDS: oxyBUTYnin 5 MG TAB PO SCH ×2 (09:00→20:07)
[2023-03-31] MEDS ORDERED: TRANEXAMIC ACID 100 MG/ML 10ML VIAL As Ordered ONE ×2 (11:05→11:15)
[2023-03-31] MEDS ORDERED: ceFAZolin 2 GM/D5W 50 ML IV BAG As Ordered ONE (11:05)
[2023-03-31] MEDS ORDERED: VANCOMYCIN 1000MG/20ML VIAL As Ordered ONE (11:16)
[2023-03-31] MEDS ORDERED: CLINDAMYCIN 900MG/6ML VIAL As Ordered ONE (11:48)
[2023-03-31] MEDS ORDERED: LIDOCAINE 2% 100MG/5ML SDV (FOR ANES.) As Ordered ONE (12:19)
[2023-03-31] MEDS ORDERED: METOCLOPRAMIDE INJ 10MG/2ML VIAL As Ordered ONE (12:19)
[2023-03-31] MEDS ORDERED: ROCURONIUM BROMIDE 50MG/5ML VIAL As Ordered ONE (12:19)
[2023-03-31] MEDS ORDERED: propofoL 200 MG/20 ML VIAL As Ordered ONE (12:19)
[2023-03-31] MEDS ORDERED: ONDANSETRON 4MG 2ML VIAL As Ordered ONE (12:19)
[2023-03-31] MEDS ORDERED: ACETAMINOPHEN 1000MG 100ML IV BAG As Ordered ONE (12:19)
[2023-03-31] MEDS ORDERED: fentaNYL 100 MCG/2 ML INJECTION As Ordered ONE ×2 (12:19→13:04)
[2023-03-31] MEDS ORDERED: MIDAZOLAM INJ 2MG/2ML VIAL As Ordered ONE (12:19)
[2023-03-31] MEDS ORDERED: SUGAMMADEX SODIUM 500 MG/5 ML VIAL (BRIDION) As Ordered ONE (13:55)
[2023-03-31] MEDS ORDERED: KETOROLAC 60MG 2ML VIAL As Ordered ONE (13:56)
[2023-03-31] MEDS ORDERED: oxyCODONE 5MG TAB PO PRN (14:35)
[2023-03-31] MEDS ORDERED: fentaNYL 100 MCG/2 ML INJECTION IV PRN (14:35)
[2023-03-31] MEDS ORDERED: HYDROMORPHONE HCL 0.5 MG/ 0.5 ML SYRINGE IV PRN (14:35)
[2023-03-31] MEDS ORDERED: ONDANSETRON 4MG 2ML VIAL IV PRN (14:35)
[2023-03-31] MEDS ORDERED: LR 1,000 ML IV SCH ×2 (14:35→15:40)
[2023-03-31] MEDS: LR 1,000 ML IV SCH (18:53)
[2023-03-31 19:27] LABS: HEMATOCRIT 39.6 % (36.0-47.0); HEMOGLOBIN 12.8 g/dl (12.0-15.5); MEAN CORPUSCULAR HEMOGLOBIN 30.4 pg (27.0-33.0); MEAN CORPUSCULAR HGB CONC 32.3 g/dl (32.0-36.5); MEAN CORPUSCULAR VOLUME 94.1 fl (80.0-96.0); PLATELET COUNT, AUTOMATED 337 10^3/uL (150-450); RED BLOOD COUNT 4.21 10^6/uL (4.00-5.40); WHITE BLOOD COUNT 12.3 10^3/uL (4.0-10.0)
[2023-03-31] MEDS ORDERED: LACTATED RINGER'S 1000 ML IV ONE (19:40)
[2023-03-31] MEDS: ATORVASTATIN 20 MG TAB PO SCH (20:07)
[2023-04-01] VITALS (7 sets, daily range): BP systolic 107–146; BP diastolic 65–81; TEMP 97.7–98.6; O2SAT 93–97
[2023-04-01 06:10] LABS: MEAN CORPUSCULAR HEMOGLOBIN 30.7 pg (27.0-33.0); MEAN CORPUSCULAR HGB CONC 33.3 g/dl (32.0-36.5); MEAN CORPUSCULAR VOLUME 92.2 fl (80.0-96.0); PLATELET COUNT, AUTOMATED 323 10^3/uL (150-450); RED BLOOD COUNT 3.58 10^6/uL (4.00-5.40); WHITE BLOOD COUNT 14.9 10^3/uL (4.0-10.0)
[2023-04-01 06:23] LABS: ALBUMIN 1.9 G/DL (3.2-5.2); BILIRUBIN,TOTAL 0.7 MG/DL (0.3-1.2); CALCIUM LEVEL 8.2 MG/DL (8.3-10.6); CREATININE FOR GFR 1.47 MG/DL (0.55-1.30); GLOMERULAR FILTRATION RATE 36.6 (>39); POTASSIUM SERUM 4.4 MMOL/L (3.5-5.1); TOTAL PROTEIN 5.2 G/DL (5.7-8.2)
[2023-04-01] MEDS: LR 1,000 ML IV SCH ×2 (06:26→17:01)
[2023-04-01] MEDS: ASPIRIN 81MG ENTERIC TABLET PO SCH (08:27)
[2023-04-01] MEDS: CARVedilol 6.25 MG TAB PO SCH ×2 (08:27→19:52)
[2023-04-01] MEDS: oxyBUTYnin 5 MG TAB PO SCH ×2 (08:28→19:53)
[2023-04-01] MEDS: CAPTOpril 12.5 MG TAB PO SCH (08:28)
[2023-04-01] MEDS: ACETAMINOPHEN TAB 650MG DOSE (2X325MG) PO PRN ×2 (08:28→19:53)
[2023-04-01] MEDS: PANTOPRAZOLE 40MG VIAL IV SCH (08:28)
[2023-04-01] MEDS: ATORVASTATIN 20 MG TAB PO SCH (19:53)
[2023-04-02] MEDS: LR 1,000 ML IV SCH (02:02)
[2023-04-02 05:35] LABS: HEMOGLOBIN 10.1 g/dl (12.0-15.5); MEAN CORPUSCULAR HEMOGLOBIN 30.9 pg (27.0-33.0); MEAN CORPUSCULAR HGB CONC 33.7 g/dl (32.0-36.5); MEAN CORPUSCULAR VOLUME 91.7 fl (80.0-96.0); PLATELET COUNT, AUTOMATED 281 10^3/uL (150-450); RED BLOOD COUNT 3.27 10^6/uL (4.00-5.40); WHITE BLOOD COUNT 9.1 10^3/uL (4.0-10.0)
[2023-04-02 05:59] LABS: ALBUMIN 1.8 G/DL (3.2-5.2); BILIRUBIN,TOTAL 0.5 MG/DL (0.3-1.2); CALCIUM LEVEL 7.3 MG/DL (8.3-10.6); CREATININE FOR GFR 1.22 MG/DL (0.55-1.30); GLOMERULAR FILTRATION RATE 45.4 (>39); POTASSIUM SERUM 4.4 MMOL/L (3.5-5.1); TOTAL PROTEIN 4.6 G/DL (5.7-8.2)
[2023-04-02 06:00] VITALS: BP 106/69; TEMP 97.7; O2SAT 93
[2023-04-02] MEDS: PANTOPRAZOLE 40MG VIAL IV SCH (07:45)
[2023-04-02] MEDS: oxyBUTYnin 5 MG TAB PO SCH ×2 (07:45→20:08)
[2023-04-02] MEDS: CARVedilol 6.25 MG TAB PO SCH ×2 (07:49→20:08)
[2023-04-02] MEDS: ASPIRIN 81MG ENTERIC TABLET PO SCH (07:49)
[2023-04-02] MEDS: ACETAMINOPHEN TAB 650MG DOSE (2X325MG) PO PRN ×2 (07:50→17:13)
[2023-04-02] MEDS ORDERED: oxyCODONE 5MG TAB PO PRN (13:10)
[2023-04-02] MEDS: oxyCODONE 5MG TAB PO PRN (13:59)
[2023-04-02 14:00] VITALS: BP 142/67; TEMP 97.5; O2SAT 93
[2023-04-02] MEDS: ENOXAPARIN 40MG/0.4ML SYRINGE (J1650 PER 10MG) SC SCH (16:12)
[2023-04-02] MEDS: CAPTOpril 6.25 MG PER 1/2 TABLET PO SCH (20:07)
[2023-04-02] MEDS: ATORVASTATIN 20 MG TAB PO SCH (20:08)
[2023-04-02 20:10] VITALS: BP 134/84
[2023-04-03] MEDS: oxyCODONE 5MG TAB PO PRN ×2 (00:09→21:48)
[2023-04-03 05:18] VITALS: BP 132/81; TEMP 97.5; O2SAT 97
[2023-04-03 06:04] LABS: HEMATOCRIT 33.4 % (36.0-47.0); MEAN CORPUSCULAR HEMOGLOBIN 30.2 pg (27.0-33.0); MEAN CORPUSCULAR HGB CONC 32.9 g/dl (32.0-36.5); MEAN CORPUSCULAR VOLUME 91.8 fl (80.0-96.0); PLATELET COUNT, AUTOMATED 292 10^3/uL (150-450); RED BLOOD COUNT 3.64 10^6/uL (4.00-5.40); WHITE BLOOD COUNT 8.3 10^3/uL (4.0-10.0)
[2023-04-03 07:02] LABS: ALBUMIN 1.9 G/DL (3.2-5.2); ALKALINE PHOSPHATASE 72 U/L (46-116); ALT/SGPT < 9 U/L (7.0-40); AST/SGOT 36 U/L (<34); BILIRUBIN,TOTAL 0.8 MG/DL (0.3-1.2); BLOOD UREA NITROGEN 22 MG/DL (9-23); CALCIUM LEVEL 8.1 MG/DL (8.3-10.6); CARBON DIOXIDE LEVEL 24 MMOL/L (20-31); CHLORIDE LEVEL 104 MMOL/L (98-107); CREATININE FOR GFR 1.05 MG/DL (0.55-1.30); GLUCOSE, FASTING 118 MG/DL (74-106); POTASSIUM SERUM 4.3 MMOL/L (3.5-5.1); SODIUM LEVEL 135 MMOL/L (136-145); TOTAL PROTEIN 4.9 G/DL (5.7-8.2)
[2023-04-03] MEDS: CAPTOpril 6.25 MG PER 1/2 TABLET PO SCH ×2 (08:36→21:47)
[2023-04-03] MEDS: ASPIRIN 81MG ENTERIC TABLET PO SCH (08:37)
[2023-04-03] MEDS: CARVedilol 6.25 MG TAB PO SCH ×2 (08:37→21:47)
[2023-04-03] MEDS: ACETAMINOPHEN TAB 650MG DOSE (2X325MG) PO PRN ×2 (08:37→21:48)
[2023-04-03] MEDS: oxyBUTYnin 5 MG TAB PO SCH ×2 (08:37→21:47)
[2023-04-03] MEDS: ENOXAPARIN 40MG/0.4ML SYRINGE (J1650 PER 10MG) SC SCH (08:45)
[2023-04-03] MEDS: ATORVASTATIN 20 MG TAB PO SCH (21:47)
[2023-04-04 05:10] VITALS: BP 132/88; TEMP 97.9; O2SAT 95
[2023-04-04] MEDS: oxyCODONE 5MG TAB PO PRN ×3 (05:53→21:49)
[2023-04-04] MEDS: ACETAMINOPHEN TAB 650MG DOSE (2X325MG) PO PRN ×3 (05:53→21:49)
[2023-04-04] MEDS: ASPIRIN 81MG ENTERIC TABLET PO SCH (08:25)
[2023-04-04] MEDS: CAPTOpril 6.25 MG PER 1/2 TABLET PO SCH ×2 (08:27→21:50)
[2023-04-04] MEDS: ENOXAPARIN 40MG/0.4ML SYRINGE (J1650 PER 10MG) SC SCH (08:27)
[2023-04-04] MEDS: CARVedilol 6.25 MG TAB PO SCH ×2 (08:27→21:48)
[2023-04-04] MEDS: oxyBUTYnin 5 MG TAB PO SCH ×2 (08:28→21:48)
[2023-04-04] MEDS: ATORVASTATIN 20 MG TAB PO SCH (21:48)
[2023-04-05 05:27] VITALS: BP 127/68; TEMP 97.9; O2SAT 92
[2023-04-05] MEDS: CAPTOpril 6.25 MG PER 1/2 TABLET PO SCH (08:17)
[2023-04-05 08:18] VITALS: BP 127/68
[2023-04-05] MEDS: ASPIRIN 81MG ENTERIC TABLET PO SCH (08:18)
[2023-04-05] MEDS: oxyBUTYnin 5 MG TAB PO SCH (08:18)
[2023-04-05] MEDS: CARVedilol 6.25 MG TAB PO SCH (08:18)
[2023-04-05] MEDS: ENOXAPARIN 40MG/0.4ML SYRINGE (J1650 PER 10MG) SC SCH (08:19)
[2023-04-05] MEDS ORDERED: FUROSEMIDE 40 MG TAB PO SCH (09:00)
[2023-04-05] MEDS: oxyCODONE 5MG TAB PO PRN (09:43)
== END 2023-04-05 14:22 | DRG 522 ==
LOC: M ED 07:54 → M ED INP 12:12 → ENRESERV 12:26 → M MSPAV 13:16
PROVIDERS: ADMIT Internal Medicine; ATTEND Internal Medicine
PROC: 0SRS0J9 Replacement of Left Hip Joint, Femoral Surface with Synthetic Substitute, Cemented, Open Approach (ICD-10-PCS; principal; 2023-03-31 10:00)
DX: S72.142A Displaced intertrochanteric fracture of left femur, initial encounter for closed fracture (principal); I13.0 Hypertensive heart and chronic kidney disease with heart failure and stage 1 through stage 4 chronic kidney disease, or unspecified chronic kidney disease; I50.42 Chronic combined systolic (congestive) and diastolic (congestive) heart failure; N17.9 Acute kidney failure, unspecified; I47.20 Ventricular tachycardia, unspecified; N39.0 Urinary tract infection, site not specified; N18.30 Chronic kidney disease, stage 3 unspecified; I25.2 Old myocardial infarction; I25.10 Atherosclerotic heart disease of native coronary artery without angina pectoris; E78.5 Hyperlipidemia, unspecified; E78.00 Pure hypercholesterolemia, unspecified; R33.9 Retention of urine, unspecified; R73.01 Impaired fasting glucose; Z95.810 Presence of automatic (implantable) cardiac defibrillator; K57.90 Diverticulosis of intestine, part unspecified, without perforation or abscess without bleeding; I49.3 Ventricular premature depolarization; B96.29 Other Escherichia coli [E. coli] as the cause of diseases classified elsewhere; W06.XXXA Fall from bed, initial encounter; Y92.009 Unspecified place in unspecified non-institutional (private) residence as the place of occurrence of the external cause; Z79.82 Long term (current) use of aspirin; Z79.899 Other long term (current) drug therapy; Z86.15 Personal history of latent tuberculosis infection; Z96.641 Presence of right artificial hip joint; Z87.442 Personal history of urinary calculi

== ENCOUNTER → 2023-04-06 | Outpatient (REF) | payer MEDICARE ==
[~2023-04-06] MED LIST changes: +ASPI-663 PO; -RA A81CH3 PO
[2023-04-06 12:05] LABS: APPEARANCE, URINE CLEAR (CLEAR); BACTERIA, URINE AUTO 1+ (NEGATIVE); BILIRUBIN, URINE AUTO NEGATIVE (NEGATIVE); BLOOD, URINE BLOOD 1+ (NEGATIVE); COLOR, URINE YELLOW (YELLOW); GLUCOSE, URINE (UA) AUTO NEGATIVE (NEGATIVE); KETONE, URINE AUTO NEGATIVE (NEGATIVE); LEUKOCYTE ESTERASE, URINE AUTO 2+ (NEGATIVE); NITRITE, URINE AUTO NEGATIVE (NEGATIVE); PROTEIN, URINE AUTO NEGATIVE (NEGATIVE); RBC, URINE AUTO 3 /HPF (0-3); SPECIFIC GRAVITY URINE AUTO 1.006 (1.002-1.035); SQUAMOUS EPITHELIAL CELL UR AU 1 /HPF (0-6); UROBILINOGEN, URINE AUTO 0.2 mg/dL (0.0-2.0); WBC, URINE AUTO 29 /HPF (0-3)
== END ==
LOC: SKLAB2 10:20
PROVIDERS: ATTEND Internal Medicine
DX: R35.0 Frequency of micturition (principal)

== ENCOUNTER → 2023-04-08 | Outpatient (REF) | LOC: SKLAB2 12:15 | PROVIDERS: ATTEND Internal Medicine | DX: R07.81 Pleurodynia (principal); Z53.8 Procedure and treatment not carried out for other reasons ==

== ENCOUNTER → 2023-04-08 | Outpatient (REF) | LOC: SKLAB2 13:57 | PROVIDERS: ATTEND Internal Medicine | DX: M25.552 Pain in left hip (principal); Z96.642 Presence of left artificial hip joint; M85.88 Other specified disorders of bone density and structure, other site; R07.81 Pleurodynia; I70.0 Atherosclerosis of aorta; Z95.0 Presence of cardiac pacemaker; Z96.611 Presence of right artificial shoulder joint; W19.XXXA Unspecified fall, initial encounter; Y92.129 Unspecified place in nursing home as the place of occurrence of the external cause ==

== ENCOUNTER → 2023-04-08 | Outpatient (CLI) | payer MEDICARE | LOC: M RAD 15:28 | PROVIDERS: ATTEND Internal Medicine | DX: R52 Pain, unspecified (principal) ==

== ENCOUNTER → 2023-04-24 | Outpatient (REF) | payer MEDICARE ==
[~2023-04-24] MED LIST changes: +ATOR80TA59 PO; +CLOP75TA2 PO; +FENO145T7 PO; +METO200T28 PO; +SENN-52 PO
== END ==
LOC: SKLAB2 07:00
PROVIDERS: ATTEND Internal Medicine
DX: R00.1 Bradycardia, unspecified (principal)

== ENCOUNTER 2023-04-27 07:06 | Emergency (ER) | payer MEDICARE ==
[~2023-04-27] VITALS: Ht 162.6 cm; Wt 63.4 kg
[~2023-04-27 07:06] MED LIST changes: -ATOR80TA59 PO; -CLOP75TA2 PO; -FENO145T7 PO; -METO200T28 PO; -SENN-52 PO
[2023-04-27 07:54] LABS: BASO % 0.5 % (0.0-1.0); EOS # 0.5 10^3/uL (0.0-0.5); EOS % 6.7 % (0.0-3.0); HEMATOCRIT 38.3 % (36.0-47.0); HEMOGLOBIN 12.4 g/dl (12.0-15.5); LYMPH # 2.1 10^3/uL (1.5-5.0); LYMPH % 26.5 % (24.0-44.0); MEAN CORPUSCULAR HEMOGLOBIN 30.1 pg (27.0-33.0); MEAN CORPUSCULAR HGB CONC 32.4 g/dl (32.0-36.5); MONO # 0.7 10^3/uL (0.0-0.8); MONO % 9.4 % (2.0-8.0); NEUTROPHILS # 4.4 10^3/uL (1.5-8.5); NEUTROPHILS % 56.5 % (36.0-66.0); PLATELET COUNT, AUTOMATED 281 10^3/uL (150-450); RED BLOOD COUNT 4.12 10^6/uL (4.00-5.40); WHITE BLOOD COUNT 7.8 10^3/uL (4.0-10.0)
[2023-04-27 08:09] LABS: INR 1.11; PROTHROMBIN TIME 14.5 SECONDS (12.5-14.5)
[2023-04-27 08:10] LABS: PARTIAL THROMBOPLASTIN TIME 28.1 SECONDS (24.8-34.2)
[2023-04-27 08:25] LABS: LIPASE 73 U/L (12-53); RSV AMPLIFICATION NEGATIVE (NEGATIVE)
[2023-04-27 08:26] LABS: CK-MB VALUE MASS < 1.0 NG/ML (<3.6)
[2023-04-27 08:27] LABS: ALBUMIN 3.2 G/DL (3.2-5.2); ALKALINE PHOSPHATASE 86 U/L (46-116); ALT/SGPT < 9 U/L (7.0-40); AST/SGOT 22 U/L (<34); BILIRUBIN,DIRECT 0.4 MG/DL (<0.4); BLOOD UREA NITROGEN 51 MG/DL (9-23); CALCIUM LEVEL 8.9 MG/DL (8.3-10.6); CARBON DIOXIDE LEVEL 20 MMOL/L (20-31); CHLORIDE LEVEL 104 MMOL/L (98-107); CREATININE FOR GFR 1.61 MG/DL (0.55-1.30); GLOMERULAR FILTRATION RATE 32.9 (>39); GLUCOSE, FASTING 112 MG/DL (74-106); POTASSIUM SERUM 4.6 MMOL/L (3.5-5.1); SODIUM LEVEL 137 MMOL/L (136-145); TOTAL PROTEIN 6.7 G/DL (5.7-8.2)
[2023-04-27 08:31] LABS: FREE T4 1.39 NG/DL (0.89-1.76); THYROID STIMULATING HORMONE 2.906 uIU/ML (0.55-4.78)
[2023-04-27 08:32] LABS: CPK CREATINE PHOSPHOKINASE 42 U/L (34-145); MB/CK RELATIVE INDEX 2.38 (< OR =4)
[2023-04-27 09:22] LABS: CK-MB VALUE MASS < 1.0 NG/ML (<3.6)
[2023-04-27 09:25] LABS: CPK CREATINE PHOSPHOKINASE 35 U/L (34-145); MB/CK RELATIVE INDEX 2.85 (< OR =4)
[2023-04-27] MEDS ORDERED: MED REC IN PROGRESS XX SCH (14:40)
[2023-04-27] MEDS ORDERED: SENN-52 PO (15:06)
[2023-04-27] MEDS ORDERED: ATOR80TA59 PO (15:06)
[2023-04-27] MEDS ORDERED: CLOP75TA2 PO (15:06)
[2023-04-27] MEDS ORDERED: FENO145T7 PO (15:06)
[2023-04-27] MEDS ORDERED: METO200T28 PO (15:06)
[2023-04-27] MEDS ORDERED: HOME MED LIST COMPLETE! XX SCH (15:45)
[2023-04-27 16:01] VITALS: BP 102/58; TEMP 96.9; O2SAT 100
== END 2023-04-27 16:00 | disposition home or self-care (01) ==
LOC: M ED 07:06 → EDBD 07:06 → M ED 16:00
DX: T82.110A Breakdown (mechanical) of cardiac electrode, initial encounter (principal); I25.10 Atherosclerotic heart disease of native coronary artery without angina pectoris; I50.9 Heart failure, unspecified; I25.2 Old myocardial infarction; E78.5 Hyperlipidemia, unspecified; N18.30 Chronic kidney disease, stage 3 unspecified; I13.0 Hypertensive heart and chronic kidney disease with heart failure and stage 1 through stage 4 chronic kidney disease, or unspecified chronic kidney disease; Z88.0 Allergy status to penicillin; Z79.899 Other long term (current) drug therapy

== ENCOUNTER → 2023-05-01 | Outpatient (REF) | payer MEDICARE ==
[~2023-05-01] MED LIST changes: +ATOR80TA59 PO; +CLOP75TA2 PO; +FENO145T7 PO; +METO200T28 PO; +SENN-52 PO
[2023-05-01 15:44] LABS: HEMOGLOBIN 13.1 g/dl (12.0-15.5); MEAN CORPUSCULAR HEMOGLOBIN 30.2 pg (27.0-33.0); MEAN CORPUSCULAR VOLUME 94.5 fl (80.0-96.0); PLATELET COUNT, AUTOMATED 271 10^3/uL (150-450); RED BLOOD COUNT 4.34 10^6/uL (4.00-5.40); WHITE BLOOD COUNT 11.2 10^3/uL (4.0-10.0)
[2023-05-01 16:38] LABS: ALBUMIN 3.2 G/DL (3.2-5.2); ALKALINE PHOSPHATASE 97 U/L (46-116); ALT/SGPT < 9 U/L (7.0-40); AST/SGOT 18 U/L (<34); BILIRUBIN,TOTAL 0.6 MG/DL (0.3-1.2); BLOOD UREA NITROGEN 34 MG/DL (9-23); CARBON DIOXIDE LEVEL 23 MMOL/L (20-31); CHLORIDE LEVEL 105 MMOL/L (98-107); CREATININE FOR GFR 1.42 MG/DL (0.55-1.30); GLOMERULAR FILTRATION RATE 38.1 (>39); GLUCOSE, FASTING 139 MG/DL (74-106); POTASSIUM SERUM 3.6 MMOL/L (3.5-5.1); SODIUM LEVEL 139 MMOL/L (136-145); TOTAL PROTEIN 6.7 G/DL (5.7-8.2)
== END ==
LOC: SKLAB2 07:00
PROVIDERS: ATTEND Internal Medicine
DX: S72.002D Fracture of unspecified part of neck of left femur, subsequent encounter for closed fracture with routine healing (principal); Z79.899 Other long term (current) drug therapy

== ENCOUNTER → 2023-06-06 | Outpatient (CLI) | payer MEDICARE | LOC: M SOG 11:01 | PROVIDERS: ATTEND Orthopaedic Surgery | DX: S72.002D Fracture of unspecified part of neck of left femur, subsequent encounter for closed fracture with routine healing (principal); M85.851 Other specified disorders of bone density and structure, right thigh; Z96.643 Presence of artificial hip joint, bilateral; Y93.9 Activity, unspecified; Y92.9 Unspecified place or not applicable ==

== ENCOUNTER → 2023-08-01 | Outpatient (CLI) | payer MEDICARE ==
[~2023-08-01] MED LIST changes: -OXYB5TAB10 PO; +OXYB5TAB11 PO
== END ==
LOC: M SOG 09:55
PROVIDERS: ATTEND Orthopaedic Surgery
DX: S72.002D Fracture of unspecified part of neck of left femur, subsequent encounter for closed fracture with routine healing (principal); Z96.642 Presence of left artificial hip joint

== ENCOUNTER 2023-08-19 07:57 | Day surgery (SDC) | payer MEDICARE ==
[~2023-08-19] VITALS: Ht 162.6 cm; Wt 64.8 kg
[~2023-08-19 07:57] MED LIST changes: +CALC600T60 PO
[2023-08-19] MEDS ORDERED: propofoL 200 MG/20 ML VIAL As Ordered ONE (08:38)
[2023-08-19] MEDS ORDERED: LIDOCAINE 2% 100MG/5ML SDV (FOR ANES.) As Ordered ONE (08:38)
[2023-08-19] MEDS ORDERED: ONDANSETRON 4MG 2ML VIAL As Ordered ONE (08:38)
[2023-08-19] MEDS ORDERED: ePHEDrine SULFATE 25 MG/5 ML(5MG/ML) SYRINGE As Ordered ONE (08:44)
[2023-08-19] MEDS ORDERED: fentaNYL 100 MCG/2 ML INJECTION As Ordered ONE (08:57)
[2023-08-19] MEDS ORDERED: ceFAZolin SOD 2 GM in IV 1 EA IV ONE (09:10)
[2023-08-19] MEDS ORDERED: LR 1,000 ML IV SCH (09:30)
[2023-08-19] MEDS ORDERED: ISOVUE-300 61% 100ML VIAL As Ordered ONE (09:43)
[2023-08-19] MEDS ORDERED: ACETAMINOPHEN 1000MG 100ML IV BAG As Ordered ONE (10:08)
[2023-08-19] MEDS ORDERED: MACR100C43 PO (10:26)
[2023-08-19 11:16] VITALS: BP 143/63; TEMP 97.3; O2SAT 95
== END 2023-08-19 13:20 | disposition home or self-care (01) ==
LOC: M SDC 07:57
PROVIDERS: ATTEND Urology
DX: N20.1 Calculus of ureter (principal); I25.10 Atherosclerotic heart disease of native coronary artery without angina pectoris; I10 Essential (primary) hypertension; E78.00 Pure hypercholesterolemia, unspecified; I25.2 Old myocardial infarction; I42.9 Cardiomyopathy, unspecified; Z95.0 Presence of cardiac pacemaker; Z79.899 Other long term (current) drug therapy; Z79.82 Long term (current) use of aspirin; Z87.891 Personal history of nicotine dependence
CPT/HCPCS: 52352; 76000; C1769; C1894; J0131; J0690; J1100; J2405; J3010; Q9967

== ENCOUNTER → 2023-09-12 | Outpatient (CLI) | payer MEDICARE ==
[~2023-09-12] MED LIST changes: +MACR100C43 PO
== END ==
LOC: M SOG 10:00
PROVIDERS: ATTEND Orthopaedic Surgery
DX: M54.50 Low back pain, unspecified (principal)

== ENCOUNTER 2024-05-17 11:43 | Emergency (ER) | payer MEDICARE ==
[~2024-05-17] VITALS: Ht 160 cm; Wt 65.9 kg
[~2024-05-17 11:43] MED LIST changes: +METO200T15 PO; -METO200T28 PO; -OXYB5TAB11 PO; +OXYB5TAB14 PO
[2024-05-17 13:32] LABS: BASO % 0.2 % (0.0-1.0); EOS # 0.1 10^3/uL (0.0-0.5); EOS % 1.1 % (0.0-3.0); HEMATOCRIT 40.3 % (36.0-47.0); HEMOGLOBIN 13.6 g/dl (12.0-15.5); LYMPH # 1.7 10^3/uL (1.5-5.0); LYMPH % 20.6 % (24.0-44.0); MEAN CORPUSCULAR HEMOGLOBIN 31.6 pg (27.0-33.0); MEAN CORPUSCULAR HGB CONC 33.7 g/dl (32.0-36.5); MEAN CORPUSCULAR VOLUME 93.5 fl (80.0-96.0); MONO # 0.9 10^3/uL (0.0-0.8); MONO % 11.6 % (2.0-8.0); NEUTROPHILS # 5.4 10^3/uL (1.5-8.5); NEUTROPHILS % 66.3 % (36.0-66.0); PLATELET COUNT, AUTOMATED 225 10^3/uL (150-450); RED BLOOD COUNT 4.31 10^6/uL (4.00-5.40); WHITE BLOOD COUNT 8.1 10^3/uL (4.0-10.0)
[2024-05-17 13:56] LABS: CALCIUM LEVEL 9.6 MG/DL (8.3-10.6); CREATININE FOR GFR 1.84 MG/DL (0.55-1.30); GLOMERULAR FILTRATION RATE 28.2 (>39); POTASSIUM SERUM 4.4 MMOL/L (3.5-5.1)
[2024-05-17] MEDS: NS IV ONE (14:09)
[2024-05-17] MEDS: DESMOPRESSIN ACETATE IV ONE (14:09)
[2024-05-17 15:44] VITALS: BP 122/72; TEMP 97; O2SAT 95
== END 2024-05-17 15:50 | disposition short-term general hospital (02) ==
LOC: M ED 11:43
DX: S06.5X0A Traumatic subdural hemorrhage without loss of consciousness, initial encounter (principal); S70.01XA Contusion of right hip, initial encounter; W19.XXXA Unspecified fall, initial encounter; E04.1 Nontoxic single thyroid nodule; M50.221 Other cervical disc displacement at C4-C5 level; M47.896 Other spondylosis, lumbar region; M25.78 Osteophyte, vertebrae; I49.3 Ventricular premature depolarization; E11.9 Type 2 diabetes mellitus without complications; N18.30 Chronic kidney disease, stage 3 unspecified; I10 Essential (primary) hypertension; E78.5 Hyperlipidemia, unspecified; Z86.79 Personal history of other diseases of the circulatory system; Z87.891 Personal history of nicotine dependence; Z88.8 Allergy status to other drugs, medicaments and biological substances; Z91.030 Bee allergy status; Z96.641 Presence of right artificial hip joint; Y92.009 Unspecified place in unspecified non-institutional (private) residence as the place of occurrence of the external cause; Y93.89 Activity, other specified; Y99.9 Unspecified external cause status
CPT/HCPCS: 70450; 72125; 73502; 73552; 80048; 85025; 93005; 93041; 96365; 99285; J2597

== ENCOUNTER 2024-11-09 06:35 | Emergency (ER) | payer MEDICARE ==
[~2024-11-09] VITALS: Ht 160 cm; Wt 64.6 kg
[2024-11-09 08:07] LABS: BASO % 0.3 % (0.0-1.0); EOS # 0.2 10^3/uL (0.0-0.5); EOS % 2.4 % (0.0-3.0); HEMATOCRIT 42.8 % (36.0-47.0); HEMOGLOBIN 14.2 g/dl (12.0-15.5); LYMPH # 1.8 10^3/uL (1.5-5.0); MEAN CORPUSCULAR HEMOGLOBIN 30.8 pg (27.0-33.0); MEAN CORPUSCULAR HGB CONC 33.2 g/dl (32.0-36.5); MEAN CORPUSCULAR VOLUME 92.8 fl (80.0-96.0); MONO # 0.9 10^3/uL (0.0-0.8); MONO % 12.3 % (2.0-8.0); NEUTROPHILS # 4.6 10^3/uL (1.5-8.5); NEUTROPHILS % 60.6 % (36.0-66.0); PLATELET COUNT, AUTOMATED 201 10^3/uL (150-450); RED BLOOD COUNT 4.61 10^6/uL (4.00-5.40); WHITE BLOOD COUNT 7.6 10^3/uL (4.0-10.0)
[2024-11-09 08:46] LABS: CALCIUM LEVEL 9.7 MG/DL (8.3-10.6); CREATININE FOR GFR 2.09 MG/DL (0.55-1.30); GLOMERULAR FILTRATION RATE 24.3 (>39); POTASSIUM SERUM 4.3 MMOL/L (3.5-5.1)
[2024-11-09] MEDS: NS 500 ML IV ONE (08:50)
[2024-11-09 08:52] LABS: APPEARANCE, URINE CLEAR (CLEAR); BACTERIA, URINE AUTO NEGATIVE (NEGATIVE); BILIRUBIN, URINE AUTO NEGATIVE (NEGATIVE); BLOOD, URINE BLOOD NEGATIVE (NEGATIVE); COLOR, URINE STRAW (YELLOW); GLUCOSE, URINE (UA) AUTO NEGATIVE (NEGATIVE); KETONE, URINE AUTO NEGATIVE (NEGATIVE); LEUKOCYTE ESTERASE, URINE AUTO NEGATIVE (NEGATIVE); NITRITE, URINE AUTO NEGATIVE (NEGATIVE); PROTEIN, URINE AUTO NEGATIVE (NEGATIVE); RBC, URINE AUTO 0 /HPF (0-3); SPECIFIC GRAVITY URINE AUTO 1.009 (1.002-1.035); SQUAMOUS EPITHELIAL CELL UR AU 1 /HPF (0-6); UROBILINOGEN, URINE AUTO 0.2 mg/dL (0.0-2.0); WBC, URINE AUTO 1 /HPF (0-3)
[2024-11-09] MEDS ORDERED: ASPE4PAD TOP (11:06)
[2024-11-09 11:19] VITALS: BP 152/72; TEMP 97.5; O2SAT 96
[2024-11-09] MEDS: LIDOCAINE 5% (LIDODERM) PATCH TD ONE (11:22)
== END 2024-11-09 11:34 | disposition home or self-care (01) ==
LOC: M ED 06:35
DX: S22.060A Wedge compression fracture of T7-T8 vertebra, initial encounter for closed fracture (principal); S22.080A Wedge compression fracture of T11-T12 vertebra, initial encounter for closed fracture; N17.9 Acute kidney failure, unspecified; E11.9 Type 2 diabetes mellitus without complications; I25.2 Old myocardial infarction; N28.1 Cyst of kidney, acquired; K57.30 Diverticulosis of large intestine without perforation or abscess without bleeding; Z90.49 Acquired absence of other specified parts of digestive tract; Z96.643 Presence of artificial hip joint, bilateral; Z88.8 Allergy status to other drugs, medicaments and biological substances; Z91.030 Bee allergy status; Z79.82 Long term (current) use of aspirin; Z79.02 Long term (current) use of antithrombotics/antiplatelets; Z79.899 Other long term (current) drug therapy; Y92.9 Unspecified place or not applicable; Y93.89 Activity, other specified; Y99.9 Unspecified external cause status